=== PATIENT | male | born 1990 | race Caucasian/White ===

== ENCOUNTER 2024-10-18 19:14 | Emergency (ER) | payer SELFPAY ==
[2024-10-18 19:31] VITALS: BP 144/98; PULSE 113; RESP 20; TEMP 36.8; O2SAT 97; BMI 33.9
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
--- NOTE | 2024-10-18 19:49 | ECG_ITS ---
APPROVED REPORT Exam: Resting ECG HR:105 bpm ECG Measurements Heart Rate 105 AXES MS 128 P 59 QRSd 128 QRS 67 QT 344 T 47 QTc 405 Conclusion SINUS TACHYCARDIA POSSIBLE RIGHT VENTRICULAR CONDUCTION DELAY [RSR (QR) IN V1/V2] No sTEMI Electronically signed by : GERARD BANDA, 10/18/2024 23:12:09
--- NOTE | 2024-10-18 20:23 | PC.NURSE ---
Pt straight stick, labs sent
--- NOTE | 2024-10-18 20:24 | PC.NURSE ---
called [facility] about transferring patient. transferred the call to the PA
[2024-10-18 20:28] LABS: Basophils % 0.3 % (0.1-2.0); Eosinophils # 0.1 Kmm3 (0.0-0.4); Eosinophils % 0.9 % (0.1-12.0); Hematocrit 41.3 % (42.0-52.0); Immature Granulocytes # 0.03 10^3uL; Immature Granulocytes % 0.3 %; Lymphocytes # 2.1 K/mm3 (0.7-4.5); Lymphocytes % 24.6 % (10-50); Mean Corpuscular HGB Conc 36.3 g/dL (31.8-35.4); Mean Corpuscular Hemoglobin 32.5 pg (27.0-31.2); Mean Corpuscular Volume 89.4 fl (80-94); Mean Platelet Volume 8.9 fl (7.4-10.4); Monocytes # 1.2 K/mm3 (0.1-1.0); Monocytes % 13.4 % (1.7-9.3); Neutrophils # 5.2 K/mm3 (1.8-7.8); Neutrophils % 60.5 % (37.0-80.0); Nucleated Red Blood Cells # 0 10^3/uL; Nucleated Red Blood Cells % 0 %; Platelet Count 261 K/mm3 (142-424); Red Blood Count 4.62 M/mm3 (4.60-6.20); Red Cell Distribution Width 12.2 % (11.5-17.5); Red Cell Distribution Width-SD 39.8 fL; White Blood Count 8.6 K/mm3 (4.8-10.8)
[2024-10-18 20:42] LABS: Albumin Level 4.2 g/dl (3.5-5.0); Chloride 96 mmol/L (98-107); Potassium 3.2 mmoL/L (3.5-5.1); Sodium 133 mmol/L (136-145)
[2024-10-18 20:45] LABS: Alanine Aminotransferase 75 U/L (12-78); Albumin/Globulin Ratio 1.4 (1.1-1.8); Alkaline Phosphatase 56 U/L (38-126); Anion Gap 10.2 mEq/L (5-15); Aspartate Amino Transferase 93 U/L (17-59); Bilirubin,Total 0.9 mg/dl (0.2-1.3); Blood Urea Nitrogen 20 mg/dl (9-20); Calcium 10.1 mg/dl (8.4-10.2); Carbon Dioxide 30 mmol/L (22.0-30.0); Creatinine Clearance Estimated 153 mL/min (50-200); Estimated Glomerular Filt Rate 77 ml/min (>60); GFR (African American) 93 ML/MIN (>60); Globulin 2.9 g/dL (1.3-3.2); Glucose 113 mg/dl (74-100); Total Protein,Serum 7.1 g/dl (6.3-8.2)
[2024-10-18 20:46] VITALS: BP 163/115; PULSE 101; O2SAT 99
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
[2024-10-18 20:50] LABS: Microscopic, Urine URINE MICROSCOPIC (MICROSCOPIC)
[2024-10-18 20:51] LABS: Acetaminophen < 10 ug/ml (10-30); Salicylate < 1.0 mg/dL (2.0-20.0)
--- NOTE | 2024-10-18 20:51 | PC.NURSE ---
House Sup notified. She will call SANE nurse.
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
--- NOTE | 2024-10-18 20:56 | PC.NURSE ---
Attempted to notify SANE nurses of request for exam. Awaiting call back.
[2024-10-18 21:03] LABS: T4 (Thyroxine) 6.9 ug/dl (5.53-11.0)
--- NOTE | 2024-10-18 21:07 | PC.NURSE ---
Pt advocate called and will be here in approx 35-40 minutes
[2024-10-18 21:10] VITALS: BP 155/107; PULSE 102; O2SAT 96
[2024-10-18 21:10] LABS: Ethyl Alcohol < 10 mg/dl (0-10)
[2024-10-18 21:13] LABS: Appearance,Urine CLEAR (Clear); Blood, Urine TRACE-I (Negative); Color,Urine YELLOW (Yellow); Glucose,Urine (UA) Negative (Negative); Ketones,Urine 2+ (Negative); Leukocyte Esterase,Urine Negative (Negative); Nitrate,Urine Negative (Negative); Protein,Urine Negative (Negative); Specific Gravity, Urine 1.025 (1.005-1.030)
[2024-10-18 21:14] LABS: Barbiturates Screen,Urine Negative ng/ml (<200)
[2024-10-18 21:15] LABS: Amphetamine/Metha Screen,Urine Negative ng/ml (<1000); Benzodiazepines Screen,Urine Negative ng/ml (<200); Bilirubin,Urine Negative (Negative)
[2024-10-18 21:16] LABS: Bacteria,Urine 1+ /lpf; Cocaine Screen,Urine Negative ng/ml (<300); Mucus,Urine 1+ /lpf; WBC,Urine Occasional #/hpf (0-3)
[2024-10-18 21:16] LABS: Thyroid Stimulating Hormone 1.56 uIU/mL (0.465-4.68)
[2024-10-18 21:17] LABS: Cannabinoid Screen,Urine Positive ng/ml (<50); Methadone Screen,Urine Negative ng/ml (<300)
[2024-10-18 21:18] LABS: Opiate Screen,Urine Negative ng/ml (<300); Phencyclidine Screen,Urine Negative ng/ml (<25)
--- NOTE | 2024-10-18 21:21 | PC.NURSE ---
2107: Senait Acuna and Maria M Garvey have been notified of SANE exam and will enroute to [facility].
--- NOTE | 2024-10-18 21:27 | PC.NURSE ---
KSP and CPD at bedside
--- NOTE | 2024-10-18 21:44 | PC.NURSE ---
notified Wade Barber that Alfredito and HARIS Zepeda nurses were in the building, currently waiting on advocate to arrive, Sunil will notify us when advocate arrives
--- NOTE | 2024-10-18 22:08 | PC.NURSE ---
Pt advocate is bedside with ROBERTO Washington (House Sup)
--- NOTE | 2024-10-18 22:46 | PC.NURSE ---
[facility] nurses Bridgette Acuna RN and Kimberly Garvey RN at bedside
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
[2024-10-18] MEDS: POTASSIUM CHLORIDE 20MEQ TAB 40 MEQ PO (23:03)
--- NOTE | 2024-10-18 23:22 | PC.NURSE ---
report called to Pk MEJIA at [facility]
--- NOTE | 2024-10-18 23:29 | PC.NURSE ---
Pt accepted to [facility]
--- NOTE | 2024-10-18 23:43 | PC.NURSE ---
Spoke with EMS to make aware of transfer.
--- NOTE | 2024-10-19 00:07 | PC.NURSE ---
EMS here for transport. This RN and August, RN gave report.
[2024-10-19 00:22] VITALS: BP 145/97; PULSE 101; RESP 18; TEMP 36.8; O2SAT 99
== END 2024-10-19 00:23 ==
PROVIDERS: Physician Assistant; Emergency Provider Emergency Medicine
DX: F29 Unspecified psychosis not due to a substance or known physiological condition (principal); R00.0 Tachycardia, unspecified; E87.6 Hypokalemia; F20.9 Schizophrenia, unspecified
CPT/HCPCS: 80053; 80307; 80320; 80329; 81001; 84436; 84443; 85025; 93005; 99285